=== PATIENT | female | born 1980 | race Caucasian/White ===

== ENCOUNTER 2021-05-14 17:36 | Emergency (ER) | payer OTHER ==
[~2021-05-14 17:36] MED LIST: PERCOCET 5/325 T1 EA PO; ZOFRAN ODT 4 MG4 MG GT
[2021-05-14 19:22] LABS: HEMOGLOBIN 15.1 gm/dl (12.3-15.3); RED BLOOD COUNT 4.89 M/UL (4.00-5.10); WHITE BLOOD COUNT 6.4 K/UL (4.5-11.0)
[2021-05-14 19:41] LABS: BUN/CREATININE RATIO 11 (0-10)
[2021-05-15] MEDS ORDERED: HOLTER MONITOR (00:51)
== END 2021-05-15 00:59 | disposition home or self-care (01) ==
LOC: ER1 17:36
PROVIDERS: Emergency Medicine
DX: R55 Syncope and collapse (principal); Z88.6 Allergy status to analgesic agent; Z88.5 Allergy status to narcotic agent
CPT/HCPCS: 70450; 70498; 71045; 72125; 80053; 82550; 82553; 84484; 85025; 93005; 96374; 99285; J1885; Q9967

== ENCOUNTER → 2021-05-16 | Outpatient (CLI) | payer OTHER ==
[~2021-05-16] MED LIST changes: +HOLTER MONITOR
== END ==
LOC: HEART 5 15:06
DX: R55 Syncope and collapse (principal)